=== PATIENT | female | born 1995 | race Caucasian/White ===

== ENCOUNTER 2021-08-07 02:17 | Emergency (ER) | payer BC, OTHER ==
[~2021-08-07] VITALS: Ht 177.8 cm; Wt 156.9 kg
[~2021-08-07 02:17] MED LIST: ALBU-118 IH; PRON INH
[2021-08-07 02:22] VITALS: BP 176/107
--- NOTE | 2021-08-07 02:30 | NUR ---
PT AMBULATED TO BED 09.
[2021-08-07] MEDS ORDERED: ALBUTEROL HFA MDI 90 MCG/ACTUATION 8 GM INH ONE (03:00)
--- NOTE | 2021-08-07 03:17 | NUR ---
RT AT BEDSIDE
[2021-08-07] MEDS ORDERED: ALBU0.0912 INH (04:10)
[2021-08-07 04:18] VITALS: BP 146/87
--- NOTE | 2021-08-07 04:24 | NUR ---
Patient discharged with v/s stable. Written and verbal after care instructions given and explained. Patient alert, oriented and verbalized understanding of instructions. Ambulatory with steady gait. All questions addressed prior to discharge. ID band removed. Patient advised to follow up with PMD. Rx of ALBUTEROL SULFATE given. Patient educated on indication of medication including possible reaction and side effects. Opportunity to ask questions provided and answered.
== END 2021-08-07 04:24 | disposition home or self-care (01) ==
LOC: MED 02:17
DX: R06.02 Shortness of breath (principal); I10 Essential (primary) hypertension; J45.909 Unspecified asthma, uncomplicated
CPT/HCPCS: 36415; 71045; 85379; 93005; 94664; 99285; Q0092

== ENCOUNTER 2021-10-02 19:03 | Emergency (ER) | payer BC, OTHER ==
[~2021-10-02] VITALS: Ht 170.2 cm; Wt 145.1 kg
[~2021-10-02 19:03] MED LIST changes: +ALBU0.0912 INH
[2021-10-02 19:40] VITALS: BP 138/90
--- NOTE | 2021-10-02 19:43 | NUR ---
to lobby a/w bed ambulatory
--- NOTE | 2021-10-02 20:08 | NUR ---
PT AMBULATED TO [facility]
[2021-10-02] MEDS ORDERED: NACL 0.9% 1,000 ML IV ONE (20:15)
[2021-10-02] MEDS ORDERED: IBUP-2213 PO (21:26)
[2021-10-02] MEDS ORDERED: PRED20TA5 PO (21:26)
--- NOTE | 2021-10-02 22:45 | NUR ---
COVID PCR OBTAINED AND GIVEN TO ROMANA GARCIA TECH
--- NOTE | 2021-10-02 22:50 | NUR ---
Patient discharged with v/s stable. Written and verbal after care instructions given and explained. Patient alert, oriented and verbalized understanding of instructions. Ambulatory with steady gait. All questions addressed prior to discharge. ID band removed. Patient advised to follow up with PMD. Rx of MOTRIN AND PREDNISONE given. Patient educated on indication of medication including possible reaction and side effects. Opportunity to ask questions provided and answered.
== END 2021-10-02 22:50 | disposition home or self-care (01) ==
LOC: MED 19:03
DX: U07.1 COVID-19 (principal)
CPT/HCPCS: 71045; 81002; 81025; 96360; 99284; J7030; U0003